=== PATIENT | female | born 1990 | race Caucasian/White ===

== ENCOUNTER → 2020-05-03 | Outpatient (CLI) | payer OTHER ==
[~2020-05-03] MED LIST: ACHYD1T PO; CEPH-507 PO; HYDR-4226 PO; ISOM1CAP11 PO; METR500T PO; NAPR-243 PO; NITR-65 PO; NITR100C3 PO; ONDAN4ODT PO; PHEN200T27 PO; SERT50TA2 PO; TRAZ150T42 PO
--- NOTE | 2020-05-03 15:17 | Diagnostic Imaging Report ---
PROCEDURE: US OB SINGLE FETUS <14 WKS. TECHNIQUE: Multiple real-time grayscale images were obtained over the gravid uterus in various projections. INDICATION: Threatened miscarriage. COMPARISON: There are no prior studies available for comparison. FINDINGS: There is a gestational sac within the uterus containing a single embryonic pole. The gestational sac measurements suggest the is approximately 7 weeks 2 days +/- 1 week. However there is no embryonic cardiac activity identified. Consequently I do suspect that this is an embryonic demise. Correlation with the patient's beta hCG levels would be recommended. The left ovary is generally unremarkable. The right ovary was not optimally visualized. There is no solid pelvic mass or free fluid collection noted. IMPRESSION: 1. There is a gestational sac within the uterus containing a single embryonic pole. However embryonic cardiac activity could not be identified and this does suggest embryonic demise. Correlation with patient's beta hCG levels would be recommended. 2. There is no acute pelvic abnormality noted 3. These results were called to Xiao at Dr. Jessica Roblero's office.. Dictated by: Dictated on workstation # [id number]
== END ==
LOC: RAD 14:11
PROVIDERS: ATTEND Obstetrics & Gynecology
DX: O20.0 Threatened abortion (principal); Z3A.00 Weeks of gestation of pregnancy not specified
CPT/HCPCS: 76801

== ENCOUNTER 2020-05-09 15:36 | Emergency (ER) | payer OTHER ==
[~2020-05-09] VITALS: Ht 160 cm; Wt 69.9 kg
[2020-05-09] MEDS ORDERED: NS IV 1000 ML 1,000 ML IV SCH (16:45)
[2020-05-09 16:49] LABS: BASOPHILS # (AUTO) 0.1 10^3/uL (0.0-0.1); BASOPHILS % (AUTO) 1 % (0-10); EOSINOPHILS % (AUTO) 0 % (0-10); HEMATOCRIT 39 % (35-52); HEMOGLOBIN 13.1 g/dL (11.5-16.0); LYMPHOCYTES # (AUTO) 2.2 10^3/uL (1.0-4.0); LYMPHOCYTES % (AUTO) 14 % (12-44); MEAN CORPUSCULAR HEMOGLOBIN 31 pg (25-34); MEAN CORPUSCULAR HGB CONC 34 g/dL (32-36); MEAN CORPUSCULAR VOLUME 90 fL (80-99); MEAN PLATELET VOLUME 8.7 fL (9.0-12.2); MONOCYTES % (AUTO) 7 % (0-12); NEUTROPHILS # (AUTO) 11.8 10^3/uL (1.8-7.8); NEUTROPHILS % (AUTO) 78 % (42-75); PLATELET COUNT 356 10^3/uL (130-400); WHITE BLOOD COUNT 15.2 10^3/uL (4.3-11.0)
[2020-05-09 17:19] LABS: EOSINOPHILS % (MANUAL) 6 %; LYMPHOCYTES % (MANUAL) 12 %; MONOCYTES % (MANUAL) 5 %; NEUTROPHILS % (MANUAL) 77 %; RBC MORPH NORMAL
[2020-05-09] MEDS ORDERED: KETOROLAC 30 MG/ML VIAL IVP STA (17:57)
[2020-05-09 18:17] LABS: ALBUMIN 3.2 GM/DL (3.2-4.5); CHLORIDE 112 MMOL/L (98-107); POTASSIUM 3.4 MMOL/L (3.6-5.0); SODIUM 138 MMOL/L (135-145)
[2020-05-09 18:18] LABS: CALCIUM 7.5 MG/DL (8.5-10.1)
[2020-05-09 18:19] LABS: GLUCOSE 77 MG/DL (70-105)
[2020-05-09 18:20] LABS: CARBON DIOXIDE 19 MMOL/L (21-32)
[2020-05-09 18:21] LABS: BILIRUBIN,TOTAL 0.7 MG/DL (0.1-1.0)
--- NOTE | 2020-05-09 18:22 | ED GU-Female ---
General Chief Complaint: Female Reproductive Stated Complaint: VAG BLEEDING / POSS 12 W PREG / ABD PAIN Nursing Triage Note: Pt states she is 12 weeks and has had excessive vaginal bleeding for 1 hour. Nursing Sepsis Screen: No Definite Risk History of Present Illness Date Seen by Provider: May 09, 2020 Time Seen by Provider: 16:01 Initial Comments 30-year-old female presents for vaginal bleeding. She is approximately 12 weeks gestation. She has had 2 previous ultrasounds which did not show a pole. Patient was aware of demise and is scheduled to see her CONTACT CENTER ANALYST tomorrow. She began having vaginal bleeding approximately 1 hour prior to arrival. She is concerned because it is bright red. She has only changed her pad once since the bleeding began. She is continuing to take vitamins daily. She reports mild cramping, she did take Tylenol earlier. Previous quantitative hCG was 27,[address] Lewis. Timing/Duration: just prior to arrival Severity/Quality: mild Radiation: none Activities at Onset: none Associated Symptoms: abdominal pain (Cramping); No fever/chills, No lower back pain, No nausea/vomiting, No urinary frequency Allergies and Home Medications Allergies Coded Allergies: No Known Drug Allergies (Unverified , 12/20/10) Home Medications Cephalexin 500 Mg Capsule, 500 MG PO TID Prescribed by: EL LAM on 02/21/15 1348 Hydrocodone Bit/Acetaminophen 1 Tab Tablet, 1-2 TAB PO PRN, (Reported) Hydrocodone/Acetaminophen 1 Each Tablet, 1 EACH PO Q4H PRN for PAIN Prescribed by: EL LAM on 02/21/15 1348 Metronidazole 500 Mg Tablet, 500 MG PO TID Prescribed by: EL LAM on 02/21/15 1348 Nitrofurantoin Macrocrystal 100 Mg Capsule, 1 CAP PO BID, (Reported) Clcr <60 mL/minute: Contraindicated Phenazopyridine Hcl 200 Mg Tablet, 1 TAB PO PRN, (Reported) Patient Home Medication List Home Medication List Reviewed: Yes Review of Systems Review of Systems Constitutional: no symptoms reported, see HPI Genitourinary: see HPI, discharge (Vaginal bleeding) All Other Systemes Reviewed Negative Unless Noted: Yes Past Hjhclcr-Snrncr-Bcfrbq Hx Past Med/Social Hx: Reviewed Nursing Past Med/Soc Hx Patient Social History Alcohol Use: Denies Use Recent Infectious Disease Expo: No Past Medical History Surgeries: Yes (KIDNEY STONE) Respiratory: No Cardiac: No Neurological: No Hx : 1 Hx Para: 0 Reproductive Disorders: No Gastrointestinal: No Musculoskeletal: No Endocrine: No Blood Disorders: No Physical Exam Vital Signs Vital Signs - First Documented 05/09/20 16:01 Temp 35.0 Pulse 110 Resp 18 B/P (MAP) 127/85 (99) Pulse Ox 99 Capillary Refill : Less Than 3 Seconds Height, Weight, BMI Height: '" Weight: lbs. oz. kg; 27.00 BMI Method: General Appearance: WD/WN, no apparent distress Cardiovascular: normal peripheral pulses, regular rate, rhythm Respiratory: chest non-tender, lungs clear, normal breath sounds Gastrointestinal: normal bowel sounds, non tender, soft Extremities: normal range of motion, non-tender, normal inspection Neurologic/Psychiatric: no motor/sensory deficits, alert, normal mood/affect, oriented x 3 Skin: normal color, warm/dry Progress/Results/Core Measures Suspected Sepsis Recent Fever Within 48 Hours: No Infection Criteria Present: None New/Unexplained Altered Menta: No Sepsis Screen: No Definite Risk SIRS Temperature: Pulse: 110 Respiratory Rate: 18 Laboratory Tests 05/09/20 16:45: White Blood Count 15.2H Blood Pressure 127 /85 Mean: 99 Laboratory Tests 05/09/20 16:45: Platelet Count 356 05/09/20 18:00: Creatinine 0.63, Total Bilirubin 0.7 Results/Orders Lab Results Laboratory Tests Test 05/09/20 16:45 05/09/20 18:00 Range/Units White Blood Count 15.2 H 4.3-11.0 10^3/uL Red Blood Count 4.28 3.80-5.11 10^6/uL Hemoglobin 13.1 11.5-16.0 g/dL Hematocrit 39 35-52 % Mean Corpuscular Volume 90 80-99 fL Mean Corpuscular Hemoglobin 31 25-34 pg Mean Corpuscular Hemoglobin Concent 34 32-36 g/dL Red Cell Distribution Width 12.5 10.0-14.5 % Platelet Count 356 130-400 10^3/uL Mean Platelet Volume 8.7 L 9.0-12.2 fL Immature Granulocyte % (Auto) 0 % Neutrophils (%) (Auto) 78 H 42-75 % Lymphocytes (%) (Auto) 14 12-44 % Monocytes (%) (Auto) 7 0-12 % Eosinophils (%) (Auto) 0 0-10 % Basophils (%) (Auto) 1 0-10 % Neutrophils # (Auto) 11.8 H 1.8-7.8 10^3/uL Lymphocytes # (Auto) 2.2 1.0-4.0 10^3/uL Monocytes # (Auto) 1.0 0.0-1.0 10^3/uL Eosinophils # (Auto) 0.0 0.0-0.3 10^3/uL Basophils # (Auto) 0.1 0.0-0.1 10^3/uL Immature Granulocyte # (Auto) 0.1 0.0-0.1 10^3/uL Neutrophils % (Manual) 77 % Lymphocytes % (Manual) 12 % Monocytes % (Manual) 5 % Eosinophils % (Manual) 6 % Blood Morphology Comment NORMAL Sodium Level 138 135-145 MMOL/L Potassium Level 3.4 L 3.6-5.0 MMOL/L Chloride Level 112 H 98-107 MMOL/L Carbon Dioxide Level 19 L 21-32 MMOL/L Anion Gap 7 5-14 MMOL/L Blood Urea Nitrogen 10 7-18 MG/DL Creatinine 0.63 0.60-1.30 MG/DL Estimat Glomerular Filtration Rate > 60 BUN/Creatinine Ratio 16 Glucose Level 77 70-105 MG/DL Calcium Level 7.5 L 8.5-10.1 MG/DL Corrected Calcium 8.1 L 8.5-10.1 MG/DL Total Bilirubin 0.7 0.1-1.0 MG/DL Aspartate Amino Transf (AST/SGOT) 15 5-34 U/L Alanine Aminotransferase (ALT/SGPT) 13 0-55 U/L Alkaline Phosphatase 38 L 40-136 U/L Total Protein 5.0 L 6.4-8.2 GM/DL Albumin 3.2 3.2-4.5 GM/DL Human Chorionic Gonadotropin, Quant 5983 H <5 MIU/ML My Orders Orders - YENIFER MADRID Cbc With Automated Diff (05/09/20 15:39) Abo Rh Type (05/09/20 15:39) Comprehensive Metabolic Panel (05/09/20 15:39) Urine Bedside (05/09/20 15:39) Hcg,Quantitative (05/09/20 15:41) Ed Iv/Invasive Line Start (05/09/20 16:31) Ns Iv 1000 Ml (Sodium Chloride 0.9%) (05/09/20 16:45) Manual Differential (05/09/20 16:45) Ketorolac Injection (Toradol Injection) (05/09/20 17:57) Vital Signs/I&O 05/09/20 05/09/20 16:01 19:01 Temp 35.0 Pulse 110 92 Resp 18 18 B/P (MAP) 127/85 (99) 125/60 Pulse Ox 99 99 Capillary Refill : Less Than 3 Seconds Blood Pressure Mean: 99 Progress Note : Time: 16:01 Progress Note Patient seen and evaluated, will obtain labs, normal saline 1 L per IV and ibuprofen 600 mg p.o. 1700 discussed lab results with Dr. Kearns, awaiting quantitative hCG. Contacted lab and they report that extreme tap was never received. Will send more lab. 1730 patient had trace vaginal bleeding when she urinated. 1745 quantitative hCG 5000. Patient discussed with Dr. Lewis by phone, recommended discharge to home with follow-up with her tomorrow. 1800 patient has remained stable, she had no dizziness upon standing. She is tearful when discussing a miscarriage but understanding. Reassurance provided and all questions answered. She reports abdominal cramping has improved. Discharge instructions and return precautions reviewed with the patient. Departure Impression Primary Impression: Spontaneous Disposition: HOME, SELF-CARE Condition: Stable Departure-Patient Inst. Decision time for Depature: 18:00 Referrals: [facility] (PCP/Family) Primary Care Physician Patient Instructions: Miscarriage (DC) Add. Discharge Instructions: Activity as tolerated. Use sanitary pads only, no tampons. Keep your appt with Dr. Kearns for tomorrow. Continue to take a vitamin 1 tablet daily. Drink water 16 ounces every 2 hours while awake. You may alternate between Tylenol 650 mg and ibuprofen 6 mg every 4 hours for pain. If you are saturating more than 1 pad per hour, become dizzy or weak when you stand, return to Emergency Dept. All discharge instructions reviewed with patient and/or family. Voiced understanding. Copy Copies To 1: CHRISS KEARNS AMY ARNP May 09, 2020 18:22
[2020-05-09 18:23] LABS: ALKALINE PHOSPHATASE 38 U/L (40-136); CREATININE SERUM 0.63 MG/DL (0.60-1.30); GFR ESTIMATED > 60
[2020-05-09 18:24] LABS: BUN/CREATININE RATIO 16
[2020-05-09 18:26] LABS: ALANINE AMINOTRANSFERASE 13 U/L (0-55)
[2020-05-09 19:01] VITALS: BP 125/60
== END 2020-05-09 19:03 | disposition home or self-care (01) ==
LOC: EDUNIT# 15:36 → ER 15:38
DX: O03.9 Complete or unspecified spontaneous abortion without complication (principal); Z79.899 Other long term (current) drug therapy
CPT/HCPCS: 36415; 80053; 84702; 84703; 85007; 85027; 86900; 86901

== ENCOUNTER 2021-10-19 16:26 | Day surgery (SDC) | payer OTHER, MEDICAID ==
[~2021-10-19] VITALS: Ht 160 cm; Wt 69.9 kg
[2021-10-19] VITALS (12 sets, daily range): BP systolic 100–135; BP diastolic 67–88
[2021-10-19] MEDS ORDERED: ONDANSETRON 4 MG/2 ML (SDV) Z0FRAN ONE (16:35)
[2021-10-19] MEDS ORDERED: KETOROLAC 30 MG/ML VIAL ONE (16:35)
[2021-10-19] MEDS ORDERED: proPOfol 200 MG/20 ML (DIPRIVAN) VIAL IV ONE (16:35)
[2021-10-19] MEDS ORDERED: LIDOCAINE PF 2% 5 ML (XYLOCAINE) VIAL ONE (16:35)
[2021-10-19] MEDS ORDERED: MIDAZOLAM 2 MG/2 ML (VERSED) VIAL ONE (16:36)
[2021-10-19] MEDS ORDERED: fentaNYL INJ 100 MCG/2 ML AMP ONE (16:36)
[2021-10-19] MEDS ORDERED: ceFAZolin INJECTION 1,000 MG ONE (16:50)
--- NOTE | 2021-10-19 16:58 | Progress Note-Pre Operative ---
Pre-Operative Progress Note Date of Available H&P: Oct 19, 2021 Date H&P Reviewed: Oct 19, 2021 Time H&P Reviewed: 16:58 History & Physical: H&P Reviewed, No changes noted Pre-Operative Diagnosis: 10-week nonviable intrauterine /Missed AB SHINE OZUNA MD Oct 19, 2021 16:58
--- NOTE | 2021-10-19 16:59 | Progress Note-Post Operative ---
Post-Operative Progess Note Surgeon (s)/Client Technologies Specialist (s) Surgeon SHINE OZUNA MD Client Technologies Specialist: None Pre-Operative Diagnosis 10-week nonviable intrauterine /Missed AB Post-Operative Diagnosis Pathology pending Procedure & Operative Findings Date of Procedure 10/19/21 Procedure Performed/Findings D&C for first trimester missed AB Anesthesia Type General Estimated Blood Loss Estimated blood loss (mL): 100 cc Specimens/Packing Specimens Removed Uterine contents/products of conception SHINE OZUNA MD Oct 19, 2021 16:59
[2021-10-19] MEDS ORDERED: ceFAZolin INJECTION 1,000 MG VIAL IV ONE (17:00)
[2021-10-19] MEDS ORDERED: oxyCODONE/APAP 5/325MG (PERCOCET 5) TABLET PO PRN (17:00)
[2021-10-19] MEDS ORDERED: LACTATED RINGERS 1,000 ML IV PRN (17:00)
[2021-10-19] MEDS ORDERED: fentaNYL INJ 100 MCG/2 ML AMP IVP PRN (17:00)
[2021-10-19] MEDS ORDERED: ONDANSETRON 4 MG/2 ML (SDV) Z0FRAN IVP PRN ×2 (17:00→17:30)
[2021-10-19] MEDS ORDERED: D5 LR IV SOLUTION 1,000 ML IV SCH (17:00)
[2021-10-19] MEDS ORDERED: KETOROLAC 30 MG/ML VIAL IVP ONE (17:00)
--- NOTE | 2021-10-19 17:02 | Discharge Inst-Surgical ---
Discharge Inst-Surgical Depart Medication/Instructions New, Converted or Re-Newed RX: Other Consults/Follow Up Patient Instructions: As directed Orders & Referrals Follow Up Appt: Call to make follow up appt. for patient in 2 weeks. Activity: Rest for 24 hours, than as tolerated. Continue home medications and may take Motrin up to 800 mg every 6 hours as needed cramps Diet: As tolerated shower or tub bathe as desired. No driving for 24 hours, no alcoholic beverages for 24 hours, and nothing per vagina (no tampons, douching, or intercoarse) for 2 weeks. Patient to return to the clinic as soon as possible for: Temperature greater than 101F, Severe Pain, Foul discharge from incision or vagina, Excessive Bleeding (more than a period). Activity Activity as Tolerated: No Diet Discharge Diet: No Restrictions SHINE OZUNA MD Oct 19, 2021 17:02
[2021-10-19 17:20] LABS: BASOPHILS # (AUTO) 0.1 10^3/uL (0.0-0.1); BASOPHILS % (AUTO) 1 % (0-10); EOSINOPHILS % (AUTO) 0 % (0-10); HEMATOCRIT 43 % (35-52); HEMOGLOBIN 14.5 g/dL (11.5-16.0); LYMPHOCYTES # (AUTO) 2.6 10^3/uL (1.0-4.0); LYMPHOCYTES % (AUTO) 22 % (12-44); MEAN CORPUSCULAR HEMOGLOBIN 29 pg (25-34); MEAN CORPUSCULAR HGB CONC 34 g/dL (32-36); MEAN CORPUSCULAR VOLUME 87 fL (80-99); MEAN PLATELET VOLUME 8.6 fL (9.0-12.2); MONOCYTES # (AUTO) 0.7 10^3/uL (0.0-1.0); MONOCYTES % (AUTO) 6 % (0-12); NEUTROPHILS # (AUTO) 8.2 10^3/uL (1.8-7.8); NEUTROPHILS % (AUTO) 70 % (42-75); PLATELET COUNT 490 10^3/uL (130-400); WHITE BLOOD COUNT 11.7 10^3/uL (4.3-11.0)
[2021-10-19] MEDS ORDERED: SEVOFLURANE (ULTANE) 15 ML INHAL SOLN ONE (17:20)
[2021-10-19] MEDS ORDERED: MEPERIDINE (DEMEROL) INJ 50 MG/ML IVP ONE (17:30)
[2021-10-19] MEDS ORDERED: PROMETHAZINE INJ 25 MG/ML (PHENERGAN) AMP IVP ONE (17:30)
[2021-10-19] MEDS ORDERED: HYDROmorphone 2 MG/ML VIAL (DILAUDID) IV ONE (17:30)
[2021-10-19] MEDS ORDERED: morphine INJ 10 MG/ML 1ML (SYR OR VIAL) IVP ONE (17:30)
--- NOTE | 2021-10-19 18:02 | Anesthesia-General Post-Op ---
General Patient Condition Mental Status/LOC: Same as Preop Cardiovascular: Satisfactory Nausea/Vomiting: Absent Respiratory: Satisfactory Pain: Controlled Complications: Absent Post Op Complications Complications None Follow Up Care/Instructions Patient Instructions None needed. Anesthesia/Patient Condition Patient Condition Patient is doing well, no complaints, stable vital signs, no apparent adverse anesthesia problems. No complications reported per nursing. JAYE SALAZAR CRNA Oct 19, 2021 18:02
--- NOTE | 2021-10-20 00:50 | OPERATIVE REPORT ---
DATE OF SERVICE: 10/19/2021 PREOPERATIVE DIAGNOSIS: First trimester missed . POSTOPERATIVE DIAGNOSIS: First trimester missed . OPERATIVE PROCEDURE: D and C for completion of first trimester missed . OPERATIVE DESCRIPTION: With the patient in supine position under satisfactory general anesthesia, she was repositioned in dorsal lithotomy position and then prepped and draped in the usual fashion for vaginal surgery. Urinary bladder was drained with a straight catheter. A weighted speculum placed in the posterior fornix of vagina, cervix exposed and grasped anteriorly with single tooth tenaculum. Uterus was sounded to 12 cm with uterine sound. The cervix was then serially dilated with Jaylon dilators to a #20 Jaylon and then a #19 Hegar dilator was the final step in dilation. A #10 curved suction curette was introduced and the intrauterine cavity was curettaged in all 4 quadrants with removal of a moderate amount of trophoblastic and decidual-appearing tissue, blood clot, amniotic fluid and debris. The endometrial cavity was then sharply curettaged in all 4 quadrants. The curved suction curette was reintroduced and the contents of the uterus were evacuated. The curved suction curette was removed. There was no significant bleeding from the cervical os. The tenaculum was removed from the cervix. There was no bleeding from the puncture sites. At this point, the procedure was complete. Sponge and needle counts were correct. Blood loss was around 100 mL. The patient tolerated the procedure well and was uneventfully awakened from her general anesthesia and transferred to recovery room in stable condition with plans for discharge home PAR. Job ID: [id number] DocumentID: [id number] Dictated Date: 10/19/2021 17:33:46 Produce Field Merchandiser Date: 10/20/2021 00:50:19 Dictated By: SHINE OZUNA MD
== END 2021-10-19 18:51 | disposition home or self-care (01) ==
LOC: SDC 16:26
PROVIDERS: ATTEND Obstetrics & Gynecology
DX: O02.1 Missed abortion (principal); F17.210 Nicotine dependence, cigarettes, uncomplicated; N91.2 Amenorrhea, unspecified; A59.00 Urogenital trichomoniasis, unspecified
CPT/HCPCS: 36415; 85025; 87081